=== PATIENT | male | born 1975 | race Caucasian/White ===

== ENCOUNTER 2021-11-17 08:52 | Outpatient (CLI) | payer BC | END 2021-11-17 08:53 | disposition home or self-care (01) | LOC: CSHULT 08:52 | PROVIDERS: ATTEND Urology | DX: N20.0 Calculus of kidney (principal); N28.1 Cyst of kidney, acquired; R35.0 Frequency of micturition; M46.1 Sacroiliitis, not elsewhere classified | CPT/HCPCS: 74018; 76770 ==

== ENCOUNTER 2022-07-05 07:40 | Outpatient (CLI) | payer BC | END 2022-07-05 07:41 | disposition home or self-care (01) | LOC: CSHCT 07:40 | PROVIDERS: ATTEND Urology | DX: N20.0 Calculus of kidney (principal) | CPT/HCPCS: 74176 ==